=== PATIENT | male | born 1995 | race Two or more races ===

== ENCOUNTER 2024-07-11 17:34 | Emergency (ER) | payer OTHER ==
[~2024-07-11] VITALS: Ht 167.6 cm; Wt 84.4 kg
[2024-07-11] MEDS ORDERED: 0.9 % SODIUM CHLORIDE 1,000 ML IV ONE (18:15)
[2024-07-11] MEDS ORDERED: FAMOtidine 10 MG/ML (4ML VIAL) IV ONE (18:15)
[2024-07-11 18:30] LABS: PH,URINE 5.5 (5.0-8.0); URINE APPEARANCE Clear; URINE BILIRRUBIN Negative (NEGATIVE); URINE BLOOD Small; URINE COLOR Yellow; URINE GLUCOSE Negative (NEGATIVE); URINE KETONE Trace (NEGATIVE); URINE LEUKOCYTE Trace; URINE NITRATE Negative; URINE PROTEIN Negative (NEGATIVE); URINE UROBILINOGEN 0.2 E.U./dl
[2024-07-11 18:34] LABS: URINE BACTERIA 31.4 uL (0.0-1933); URINE EPITHELIAL CELLS 2.9 uL (0.0-38.8); URINE RBC 8.3 uL (0.0-20.8); URINE WBC 75.7 uL (0.0-23.2)
[2024-07-11 18:38] LABS: HEMATOCRIT 42.3 % (39.0-48.0); HEMOGLOBIN 14.7 g/dL (13-16.00); MEAN CELL VOLUME 81.6 fL (80.0-100.00); MEAN CORPUSCULAR HEMOGLOBIN 28.5 pg (27.00-32.0); MEAN CORPUSCULAR HGB CONC 34.9 g/dl (32.0-36.0); PLATELET COUNT 328 K/uL (150-450); RED BLOOD COUNT 5.18 M/uL (4.00-6.00); RED CELL DISTRIBUTION WIDTH 13.6 % (11.5-14.5)
[2024-07-11 18:41] LABS: URINE CAST 0.15 uL (0.0-1.40)
[2024-07-11 18:51] LABS: ALBUMIN 4.4 gm/dL (3.4-5.0); BILIRUBIN TOTAL 0.55 mg/dL (0.3-1.2); CREATININE SERUM 1.09 mg/dL (0.70-1.30); GFR 81.15; GLOBULINA 3.3 G/DL (2.4-3.5); POTASSIUM 4.36 mEq/L (3.5-5.1); TOTAL PROTEIN 7.7 gm/dL (6.4-8.2)
== END 2024-07-11 22:43 | disposition home or self-care (01) ==
LOC: ER 17:36
PROVIDERS: General Practice
DX: R10.13 Epigastric pain (principal); Z87.09 Personal history of other diseases of the respiratory system